=== PATIENT | female | born 1970 | race Caucasian/White ===

== ENCOUNTER → 2016-07-05 | Outpatient (CLI) | payer OTHER | LOC: BMCIMAGING 08:14 | PROVIDERS: ATTEND Obstetrics & Gynecology | DX: Z12.31 Encounter for screening mammogram for malignant neoplasm of breast (principal) | CPT/HCPCS: G0202 ==

== ENCOUNTER → 2016-11-19 | Outpatient (CLI) | payer OTHER | LOC: BMCIMAGING 08:12 | PROVIDERS: ATTEND Dermatology | DX: R19.00 Intra-abdominal and pelvic swelling, mass and lump, unspecified site (principal); Z86.018 Personal history of other benign neoplasm ==

== ENCOUNTER → 2017-05-02 | Outpatient (CLI) | payer OTHER | LOC: BMCIMAGING 15:39 | PROVIDERS: ATTEND Internal Medicine Rheumatology | DX: M79.641 Pain in right hand (principal); M79.642 Pain in left hand; M54.5 Low back pain ==

== ENCOUNTER → 2017-07-11 | Outpatient (CLI) | payer OTHER | LOC: FIMAGING 14:02 | PROVIDERS: ATTEND Obstetrics & Gynecology | DX: Z12.31 Encounter for screening mammogram for malignant neoplasm of breast (principal) ==

== ENCOUNTER 2017-08-08 08:58 | Day surgery (SDC) | payer OTHER ==
--- NOTE | 2017-08-08 07:38 | PDHPUP ---
History & Physical Update H&P update statement: This history and physical update is based on an assessment of the patient which was completed after admission or registration (within 24 hours), but prior to the surgery/procedure. H&P update: H&P reviewed & patient examined, no change in patient's condition since H&P completed
--- NOTE | 2017-08-08 07:42 | POSTOPPROG ---
Post Op Note Date of Operation: 08/08/17 Surgeon: Bob Logan Umbrella Tipper Machine: Cookie Marion PA-C Anesthesiologist: Janine Liriano Anesthesia: GET(General Endotracheal) Pre-op Diagnosis: ventral hernia Post-op Diagnosis: same Procedure: lap ventral hernia with 20x 25cm symbotex mesh Findings: multiple filipino cheese omental containing defects Inf/Abcess present in the surg proc area at time of surgery?: No EBL: Minimal Complications: no immediate Specimen(s): none
[2017-08-08] MEDS ORDERED: MIDAZOLAM 2 MG/2 ML VIAL IVP ONE (10:43)
--- NOTE | 2017-08-08 10:47 | PDANEPAE ---
ANE History of Present Illness Laparoscopic ventral hernia repair ANE Past Medical History - Cardiovascular History Hx Hypertension: Yes Hx Arrhythmias: No Hx Chest Pain: No Hx Coronary Artery / Peripheral Vascular Disease: No Hx CHF / Valvular Disease: No Hx Palpitations: No - Pulmonary History Hx COPD: No Hx Asthma/Reactive Airway Disease: No Hx Recent Upper Respiratory Infection: No Hx Oxygen in Use at Home: No Hx Sleep Apnea: No Sleep Apnea Screening Result - Last Documented: Negative - Neurologic History Hx Cerebrovascular Accident: No Hx Seizures: No Hx Dementia: No - Endocrine History Hx Diabetes: Yes Hypothyroid: Yes Obesity: moderate Endocrine History Comment: pre-diabetic. gestational diabetes - Renal History Hx Renal Disorders: No - Liver History Hx Hepatic Disorders: No - Neurological & Psychiatric Hx Hx Neurological and Psychiatric Disorders: No Neurological / Psychiatric History Comment: situational anxiety - Cancer History Hx Cancer: Yes Cancer History Comment: cervical dysplasia - Congenital Disorder History Hx Congenital Disorders: No - GI History GERD: no Hx Gastrointestinal Disorders: Yes Gastrointestinal History Comment: adenoma with bowel resection 2010. IBS/gluten - Other Health History Other Health History: none - Chronic Pain History Chronic Pain: Yes (lower back) - Surgical History Prior Surgeries: hysterectomy with oophorectomy ANE Review of Systems Review of Systems: - Exercise capacity METS (RN): 4 METS ANE Patient History - Allergies Allergies/Adverse Reactions: codeine [Codeine] Allergy (Verified 08/07/17 16:49) Vomiting - Home Medications Home medications: home medication list seen and reviewed Home Medications: Cholecalciferol (Vitamin D3) 08/07/17 [Last Taken 08/07/17] Combipatch 0.05-0.25 mg Ptch 08/07/17 [Last Taken 08/04/17] Duloxetine HCl 08/07/17 [Last Taken 08/07/17] Fish Oil EC 1,200 mg Softgel 08/07/17 [Last Taken 08/07/17] Hydrochlorothiazide 08/07/17 [Last Taken 08/06/17] Hydroxychloroquine Sulfate 08/07/17 [Last Taken 08/07/17] Levothyroxine Sodium 08/07/17 [Last Taken 08/08/17 07:00] Metoprolol Succinate 08/07/17 [Last Taken 08/07/17] Simvastatin 08/07/17 [Last Taken 08/07/17] Valsartan 08/07/17 [Last Taken 08/07/17] - NPO status NPO Status: no food or drink >8 hours NPO Since - Liquids (Date): 08/08/17 NPO Since - Liquids (Time): 07:00 NPO Since - Solids (Date): 08/07/17 NPO Since - Solids (Time): 20:00 - Anes Hx Anes Hx: no prior problems, slow to awaken from anesthesia - Smoking Hx Smoking Status: Never smoked Marijuana use: No - Alcohol Use Alcohol Use: Occasionally - Family Anes Hx Family Hx Anesthesia Complications: mom has issues waking up ANE Labs/Vital Signs - Labs Result Diagrams: 08/08/17 10:10 - Vital Signs Blood Pressure: 136/79 Heart Rate: 65 Respiratory Rate: 16 O2 Sat (%): 94 Height: 165.1 cm Weight: 104.326 kg ANE Physical Exam - Airway Neck exam: FROM Mallampati Score: Class 1 Mouth exam: normal dental/mouth exam - Pulmonary Pulmonary: no respiratory distress, no rales or rhonchi - Cardiovascular Cardiovascular: regular rate and rhythym, no murmur, rub, or gallop - ASA Status ASA Status: II ANE Anesthesia Plan Anesthesia Plan: general endotracheal anesthesia
[2017-08-08] MEDS ORDERED: BUPIVACAINE/EPI 0.5% 30 ML SDV ONE (10:54)
[2017-08-08] MEDS ORDERED: fentaNYL 250 MCG/5 ML INJ ONE (11:07)
[2017-08-08] MEDS ORDERED: PROPOFOL 200 MG/20 ML VIAL ONE ×3 (11:07→12:26)
[2017-08-08] MEDS ORDERED: PROPOFOL/EMULSION 500 MG/50 ML BOTTLE IV ONE (11:07)
[2017-08-08] MEDS ORDERED: DEXAMETHASONE 4 MG/ML VIAL ONE (11:48)
[2017-08-08] MEDS ORDERED: KETOROLAC 30 MG/1 ML SDV ONE (11:48)
[2017-08-08] MEDS ORDERED: ROCURONIUM 100 MG/10 ML VIAL ONE (11:49)
[2017-08-08] MEDS ORDERED: LIDOCAINE 2% 5 ML SDV ONE (11:49)
[2017-08-08] MEDS ORDERED: ONDANSETRON 4 MG/2 ML VIAL ONE (11:49)
[2017-08-08] MEDS ORDERED: GLYCOPYRROLATE 0.2 MG/1 ML VIAL ONE (11:50)
[2017-08-08] MEDS ORDERED: fentaNYL 100 MCG/2 ML INJ ONE ×2 (12:17→13:05)
[2017-08-08] MEDS ORDERED: ENALAPRILAT DIHYDRATE 1.25 MG/ML VIAL ONE (12:39)
[2017-08-08] MEDS ORDERED: PROMETHAZINE HCL 25 MG/ML INJ IVP PRN (12:46)
[2017-08-08] MEDS ORDERED: DIAZEPAM 5 MG/ML 1 ML SYR IVP PRN (12:46)
[2017-08-08] MEDS ORDERED: HYDROCODONE/APAP 5/325 TAB PO PRN (12:46)
[2017-08-08] MEDS ORDERED: ONDANSETRON 4 MG/2 ML VIAL IVP PRN (12:46)
[2017-08-08] MEDS ORDERED: HYDROmorphONE/DILAUDID 1 MG/ML INJ IVP PRN (12:46)
[2017-08-08] MEDS ORDERED: NALOXONE HCL 0.4 MG/ML INJ IVP PRN (12:46)
[2017-08-08] MEDS ORDERED: SUGAMMADEX SODIUM 200 MG/2 ML VIAL IVP ONE (12:49)
[2017-08-08] MEDS ORDERED: METOCLOPRAMIDE 10 MG/2 ML VIAL ONE (12:51)
--- NOTE | 2017-08-08 13:01 | GOP ---
[f rep st] OPERATIVE REPORT DATE OF OPERATION: 08/08/2017 SURGEON: Bob Logan MD RD LAB TECHNICIAN: Cookie Marion PA-C. ANESTHESIA: General. ANESTHESIOLOGIST: Dr. Liriano. PREOPERATIVE DIAGNOSIS: Incisional hernia. POSTOPERATIVE DIAGNOSIS: Incisional hernia. PROCEDURE PERFORMED: Laparoscopic incisional hernia, with 20 x 25 cm Symbotex mesh. FINDINGS: See below. INDICATIONS: 47-year-old female status post a prior right hemicolectomy, complicated by anastomotic leak, anastomotic revision, open wound closure, and now symptomatic ventral hernia. She is undergoing surgical repair at this time. Risks and benefits were explained of bleeding, infection, recurrence, bowel injury, bowel obstruction, as well as others. All questions were answered. She desires to proceed. A certified surgical technician is standard, necessary, and customary for the safe performance of this procedure. DESCRIPTION OF PROCEDURE: General anesthesia was induced. The left upper quadrant was entered with a Veress needle. This was followed by 5 mm trocar placement. The abdomen was insufflated to 15 mmHg. Three additional 5 mm ports were placed, 2 within the left mid abdomen, and 1 within the right mid abdomen. Omental adhesions were all lysed out of the Serbian cheese lower midline laparotomy wound. The defect started at approximately just beneath the level of the umbilicus, and extended towards the midway toward the hypogastric incision. The lower portion of the incision appears intact. A 20 x 25 cm Symbotex mesh was tagged at all 4 corners and centrally, and placed in the abdominal cavity. Using a fascial closure device, the mesh was anchored to the abdominal wall. Using a series of absorbable tacks, the mesh was completely anchored, reinforcing the entire midline incision except for the lower-most quarter of it near the pubic bone. Satisfactory hemostasis was assured. Excellent coverage of the midline fascial defect was obtained with multiple centimeters of overlap radially. The abdomen was desufflated. Trocars were removed under direct visualization. The wounds were all closed with Monocryl suture followed by Dermabond. The patient was taken to Recovery uneventfully. /[id number]/MODL MTDD
[2017-08-08] MEDS ORDERED: HYDROmorphONE/DILAUDID 1 MG/ML INJ ONE (13:05)
[2017-08-08] MEDS: fentaNYL 100 MCG/2 ML INJ IVP PRN ×2 (13:11→13:17)
[2017-08-08] MEDS ORDERED: DIAZEPAM 5 MG/ML 1 ML SYR ONE (13:32)
[2017-08-08] MEDS ORDERED: HYDROCODONE/APAP 5/325 TAB ONE (14:20)
[2017-08-08 15:16] VITALS: BP 127/66
--- NOTE | 2017-08-08 16:17 | POSTANESTH ---
Post Anesthetic Evaluation Cardiovascular Status: Normal, Stable Respiratory Status: Normal, Stable Level of Consciousness/Mental Status: Can Participate in Eval Pain Control: Adequate, Prn Tx Ordered Nausea/Vomiting Control: Adequate, Prn Tx Ordered Complications Possibly Related to Anesthesia: None Noted
== END 2017-08-08 15:42 | disposition home or self-care (01) ==
LOC: FSGY 08:58
PROVIDERS: ATTEND Surgery
PROC: 0WUF4JZ Supplement Abdominal Wall with Synthetic Substitute, Percutaneous Endoscopic Approach (ICD-10-PCS; principal; 2017-08-08 10:15)
DX: K43.2 Incisional hernia without obstruction or gangrene (principal); R73.03 Prediabetes; M54.5 Low back pain
CPT/HCPCS: C1781; J1100; J1170; J1885; J2250; J2405; J2704; J2765; J3010; J3360

== ENCOUNTER → 2018-07-28 | Outpatient (CLI) | payer OTHER | LOC: FIMAGING 12:03 ==